=== PATIENT | male | born 1990 | race Caucasian/White ===

== ENCOUNTER 2018-11-28 07:56 | Emergency (ER) | payer BC, MEDICAID ==
[~2018-11-28] VITALS: Ht 167.6 cm; Wt 137.0 kg
[2018-11-28 07:59] VITALS: BP 120/91
--- NOTE | 2018-11-28 08:08 | NUR ---
S/O R LEG PAIN 10/10 AND SHARP RADIATING FROM R BUTTOCKS TO R FOOT. PER PT, THE PAIN IS THE WORST BEHIND THE KNEE. PT STATES HE WAS SEEN AT [facility] 2 DAYS AGO AND TOLD HE HAS TENDONITIS AND WAS GIVEN IBUPROFEN, BUT THIS HAS NOT HELPED WITH THE PAIN. PT IS AMBULATORY W/ STEADY GAIT. PT DENIES INJURY, NO OBVIOUS DEFORMITY NOTED, +2 PEDAL PULSE TO R FOOT, +2 POPLITEAL PULSE TO R POSTERIOR KNEE. <3 SEC CAP REFIL. PT STATES HIS LEG FELT "REALLY WARM". R LEG IS NOT WARM TO THE TOUCH OR REDDENED AT THIS TIME. BED IN LOW POSITION, SIDE RAIL UP X1.
--- NOTE | 2018-11-28 09:05 | NUR ---
ERMD AT BEDSIDE
[2018-11-28] MEDS ORDERED: HYDROcodone/APAP 5/325 MG 1 TAB TAB PO ONE (09:20)
[2018-11-28 09:41] VITALS: BP 124/96
== END 2018-11-28 09:40 | disposition home or self-care (01) ==
LOC: MED 07:56
DX: M54.31 Sciatica, right side (principal); F12.90 Cannabis use, unspecified, uncomplicated
CPT/HCPCS: 99282; 99283

== ENCOUNTER 2020-06-21 21:33 | Emergency (ER) | payer MEDICAID ==
[~2020-06-21] VITALS: Ht 175.3 cm; Wt 145.1 kg
[2020-06-21 21:37] VITALS: BP 118/57
--- NOTE | 2020-06-21 21:46 | NUR ---
PT TAKEN TO BED 11
--- NOTE | 2020-06-21 21:48 | NUR ---
29 Y/O MALE PRESENTS TO THE ED WITH COMPLAINTS OF PENILE BLEEDING. PT REPORTS "WHILE I WAS SHOWERING THERE WAS A POCKET OF BLOOD WHEN I SCRUBBED AND IT STARTED BLEEDING." PT PAIN IS 2/10 THAT IS STINGING AND IRRITATING. PT REPORTS BLEEDING FOR HALF HOUR. DENIES N/V/D; SKIN IS PINK/WARM/DRY; AAOX4 WITH EVEN AND STEADY GAIT; LUNGS CLEAR BL; HR EVEN AND REGULAR; PT DENIES ANY FEVER, CP, SOB, OR COUGH AT THIS TIME; VSS; PATIENT POSITIONED FOR COMFORT; HOB ELEVATED; BEDRAILS UP X2; BED DOWN. ER MD MADE AWARE OF PT STATUS. PMH: N/A ALLERGIES: NKA
--- NOTE | 2020-06-21 21:51 | NUR ---
Dr. Coulter examining patient.
--- NOTE | 2020-06-21 21:58 | NUR ---
PT AMBULATED TO THE BATHROOM
--- NOTE | 2020-06-21 22:01 | NUR ---
PT RETURNED FROM BATHROOM
--- NOTE | 2020-06-21 22:04 | NUR ---
DR CHEEK WITH PATIENT EXAMINING
[2020-06-21] MEDS ORDERED: CEPH500C16 PO (22:19)
[2020-06-21 22:31] VITALS: BP 118/57
== END 2020-06-21 22:31 | disposition home or self-care (01) ==
LOC: MED 21:33
DX: L73.1 Pseudofolliculitis barbae (principal); F17.210 Nicotine dependence, cigarettes, uncomplicated; F12.90 Cannabis use, unspecified, uncomplicated; Z79.899 Other long term (current) drug therapy
CPT/HCPCS: 99283

== ENCOUNTER 2020-06-27 03:03 | Emergency (ER) | payer MEDICAID ==
[~2020-06-27] VITALS: Ht 175.3 cm; Wt 145.1 kg
[~2020-06-27 03:03] MED LIST: CEPH500C16 PO
[2020-06-27 03:11] VITALS: BP 132/74
[2020-06-27] MEDS ORDERED: PHENAZOPYRIDINE 100 MG TAB PO ONE (03:35)
[2020-06-27 04:21] LABS: APPEARANCE,URINE CLEAR (CLEAR); BILIRUBIN,URINE NEGATIVE (NEGATIVE); BLOOD, URINE NEGATIVE (NEGATIVE); COLOR,URINE YELLOW (YELLOW); LEUKOCYTE ESTERASE ,URINE NEGATIVE (NEGATIVE); NITRITE, URINE NEGATIVE (NEGATIVE); UGLUCOSE NEGATIVE (NEGATIVE)
[2020-06-27] MEDS ORDERED: cefTRIAXone 500 MG in LIDOCAINE MPF 1% 1 ML IM ONE (05:00)
[2020-06-27] MEDS ORDERED: cefTRIAXone 500 MG VIAL ONE (05:03)
[2020-06-27] MEDS ORDERED: LIDOCAINE MPF 1% 5 ML ONE (05:03)
[2020-06-27] MEDS ORDERED: PYR100 PO (05:41)
[2020-06-27] MEDS ORDERED: DOXY100C9 PO (05:41)
[2020-06-27 06:03] VITALS: BP 132/74
== END 2020-06-27 06:03 | disposition home or self-care (01) ==
LOC: MED 03:03
DX: R30.0 Dysuria (principal); R31.9 Hematuria, unspecified
CPT/HCPCS: 36415; 81003; 96372; 99283; J0696; J2001; 87491

== ENCOUNTER 2022-08-11 02:15 | Emergency (ER) | payer MEDICAID ==
[~2022-08-11] VITALS: Ht 175.3 cm; Wt 147.4 kg
[~2022-08-11 02:15] MED LIST changes: +DOXY-690 PO; +PYR100 PO
[2022-08-11 02:20] VITALS: BP 127/87
--- NOTE | 2022-08-11 02:40 | NUR ---
TO LOBBY FOLLOWING TRIAGE
--- NOTE | 2022-08-11 02:45 | NUR ---
PT TO BED 07
--- NOTE | 2022-08-11 03:05 | NUR ---
31 Y/O M from home presents with abcess on L groin area x1.5weeks with 5/10 pain. pt stated the abcess ruptured last night with blood oozing out. pt A&Ox4, skin intact, respirations even and unlabored. pt denies any NVD, headaches pain radiating. pmh- pt denies NKA
[2022-08-11] MEDS ORDERED: LIDOCAINE MPF 1% 5 ML ONE (05:24)
[2022-08-11] MEDS ORDERED: LIDOCAINE 1% 500 MG/ 50 ML VIAL INJ ONE (05:25)
[2022-08-11] MEDS ORDERED: CEPH-588 PO (06:17)
--- NOTE | 2022-08-11 06:30 | NUR ---
Patient discharged with v/s stable. Written and verbal after care instructions given and explained. Patient alert, oriented and verbalized understanding of instructions. Ambulatory with steady gait. All questions addressed prior to discharge. ID band removed. Patient advised to follow up with PMD. Rx of keflex given.Opportunity to ask questions provided and answered. Dr. Barrera orders reinforced
== END 2022-08-11 06:30 | disposition home or self-care (01) ==
LOC: MED 02:15
DX: S31.821A Laceration without foreign body of left buttock, initial encounter (principal); L03.317 Cellulitis of buttock; Z79.899 Other long term (current) drug therapy; X58.XXXA Exposure to other specified factors, initial encounter; Y93.89 Activity, other specified; Y92.89 Other specified places as the place of occurrence of the external cause; Y99.8 Other external cause status
CPT/HCPCS: 10060; 99284; J2001; 10140

== ENCOUNTER 2022-10-17 11:42 | Emergency (ER) | payer MEDICAID ==
[~2022-10-17] VITALS: Ht 172.7 cm; Wt 143.8 kg
[~2022-10-17 11:42] MED LIST changes: +CEPH-588 PO
[2022-10-17 11:52] VITALS: BP 134/83; PULSE 87; RESP 20; TEMP 99.1; O2SAT 96
[2022-10-17] MEDS ORDERED: KETOROLAC 30 MG/ML VIAL IM ONE (13:00)
[2022-10-17] MEDS ORDERED: ONDANSETRON 4 MG ODT PO ONE (13:00)
[2022-10-17] MEDS ORDERED: IBUP-2213 PO (13:07)
[2022-10-17] MEDS ORDERED: BPM/118S31 PO (13:07)
[2022-10-17] MEDS ORDERED: NIRM1TAB5 PO (13:07)
[2022-10-17] MEDS ORDERED: ONDA-188 SL (13:07)
[2022-10-17] MEDS ORDERED: ALBU0.0912 IH (13:07)
--- NOTE | 2022-10-17 13:12 | NUR ---
Patient discharged with v/s stable. Written and verbal after care instructions given and explained. Patient alert, oriented and verbalized understanding of instructions. Ambulatory with steady gait. All questions addressed prior to discharge. ID band removed. Patient advised to follow up with PMD. Rx of ALBUTEROL,IBUPROFEN, PAXLOVID, ZOFRAN given. Patient educated on indication of medication including possible reaction and side effects. Opportunity to ask questions provided and answered.
== END 2022-10-17 13:12 | disposition home or self-care (01) ==
LOC: MED 11:42
DX: U07.1 COVID-19 (principal); E78.5 Hyperlipidemia, unspecified; Z79.899 Other long term (current) drug therapy
CPT/HCPCS: 99283